=== PATIENT | female | born 1995 | race Caucasian/White ===

== ENCOUNTER → 2016-09-12 | Day surgery (SDC) | payer BC ==
[~2016-09-12] VITALS: Ht 154.9 cm; Wt 52.3 kg
[~2016-09-12] MED LIST: BACITRACIN TOP OINT 15 GM TUBE ONE; Birth Control PO; CHLORHEXIDINE GLUCONATE 2 % 1 PACK (2 CLOTHS) TOPICAL PRN; ERYTOIN10 EACH EYE; ETON1IMP I-DERMAL; FAMOTIDINE 20 MG/2 ML VIAL ONE; FLUC150T PO; HYDR-3111 PO; IBUP800T23 PO; INSULIN HUMAN REGULAR 1,000 UNITS/10 ML VIAL SQ PRN; KETOROLAC TROMETHAMINE 60 MG/2 ML (IM) VIAL IM ONE; LACTATED RINGER'S 1000 ML IV PRN; MEPERIDINE HCL 25 MG/ML VIAL ONE; METOPROLOL TARTRATE 25 MG TAB PO PRN; MIDAZOLAM HCL 2 MG/2 ML VIAL ONE; MORPHINE SULFATE 8 MG/ML INJ ONE; ONDANSETRON HCL 4 MG/2 ML VIAL IV PUSH ONE; PENI500T PO; POVIDONE IODINE 5% (ANTISEPSIS KIT) 4 APPLICATIONS EACH NARE PRN; PROPOFOL 200 MG/20 ML AMP IV ONE; SODIUM CHLORID 0.9% 500 ML IV PRN; TRIA0.1212 PO; [UNRECOGNIZED DRUG - OTHER] PO; ceFAZolin 1,000 MG/NS 100 ML IV PRN; ceFAZolin 1,000 MG/NS 100 ML IV SCH; fentaNYL CITRATE 250 MCG/5 ML AMP IV ONE
[2016-09-12 07:55] VITALS: BP 106/71; PULSE 68; RESP 18; TEMP 98.2; O2SAT 100
--- NOTE | 2016-09-12 10:43 | PD.OP ---
david Operative Report Date of Surgery: Sep 12, 2016 Preoperative Diagnosis: (1) Bartholin gland cyst Postoperative Diagnosis: (1) Bartholin gland cyst Procedure: excision right Bartholin's gland cyst Anesthesia: LMA Bren/Kay Surgeon: Supriya Cassidy Driller'S Offsider(s): Sarika Rangel Surgeon: n/a Operation and Findings: Indications: The patient notes a swelling to the right of the vaginal opening for about 2 months. After diagnosing a Bartholin's gland cyst and offering expectant management, incision and drainage with or without Word catheter, and excision, the patient requests excision. Findings: The patient has a palpable cyst extending almost to the ischium. The duct is visible as a small mucus cyst at the introitus, and so the cyst was ruptured when the excision reached that duct. Procedure: After general anesthesia was induced, the patient was positioned in high stirrups and prepped and draped. After pelvic exam under anesthesia with findings described above, an incision was made with a #15 blade just interior to the visible duct in a natural crease and about 1.5 cm in length. Metzenbaum scissors were then used to separate the intact cyst working from medial to lateral to avoid cyst rupture and to avoid the perineal vasculature until the cyst was almost completely isolated. A clamp was the placed across the lateral attachments and the cyst was cut free. The pedicle formed was then ligated with 2-0 Vicryl in Deidre fashion. Cautery was used for capillary bleeders, achieving hemostasis in the surgical defect. Mucosal edges were then approximated with 3- 0 Vicryl sutures. About 15 suture were placed. Irrigation was used to make sure the field was dry and the insicion was closed. The patient was replaced supine, awakened and transferred to the PACU awake and breathing on her own. She tolerated the procedure well. Sponge needle and instrument counts were correct. Supriya Cassidy MD Sep 12, 2016 10:43
[2016-09-12 12:35] VITALS: BP_SYST 45; PULSE 66; RESP 16; TEMP 98; O2SAT 95
== END | disposition home or self-care (01) ==
LOC: PHSDC 07:10
PROVIDERS: ATTEND Obstetrics & Gynecology
DX: N75.0 Cyst of Bartholin's gland (principal)
CPT/HCPCS: 00940; 56740; 88304; J1885; J2175; J2250; J2270; J2405; J3010; J7120